=== PATIENT | female | born 1955 | race Caucasian/White ===

== ENCOUNTER 2018-08-27 07:36 | Emergency (ER) | payer MEDICAID ==
--- NOTE | 2018-08-27 07:54 | EDPHY ---
H & P Time Seen by Provider: 08/27/18 07:53 HPI/ROS: Chief complaint. Flu symptoms HPI. 63-year-old male presents emergency department with fever and congestion and achiness that began last night. He is here by EMS. No chest discomfort or shortness of breath cough. Cough is occasionally productive whitish sputum. Patient is at longterm and there is lots of coughing and sick people. He received a hepatitis a vaccine yesterday. ROS 10 systems were reviewed and negative with the exception of the elements mentioned in the history of present illness Past Medical/Surgical History: Transgender Social History: Single, daily smoker, no alcohol Smoking Status: Current every day smoker Physical Exam: General Appearance: Alert well-developed male mild distress vital signs stable Eyes: Pupils equal and round no pallor or injection. ENT, mucous membranes are moist. Pharynx without injection Respiratory: No retractions. Mild inspiratory expiratory rhonchi Cardiovascular: Regular rate and rhythm. Gastrointestinal: Abdomen is soft and nontender, no masses, bowel sounds normal. Neurological: Awake and alert, sensory and motor exams grossly normal. Skin: Warm and dry, no rashes. Musculoskeletal: Neck is supple nontender. Extremities symmetrical, full range of motion. Psychiatric: Patient is oriented X 3, there is no agitation. Constitutional: Initial Vital Signs Temperature (C) 37.0 C 08/27/18 07:39 Heart Rate 77 08/27/18 07:39 Respiratory Rate 16 08/27/18 07:39 Blood Pressure 112/66 08/27/18 07:39 O2 Sat (%) 93 08/27/18 07:39 O2 Delivery Mode Room Air Allergies/Adverse Reactions: aspirin Allergy (Verified 08/27/18 07:41) ibuprofen Allergy (Verified 08/27/18 07:41) naproxen [From Naprosyn] Allergy (Verified 08/27/18 07:41) Home Medications: Medication Instructions Recorded Bactrim DS 02/15/18 Estradiol 02/15/18 Progesterone 02/15/18 Albuterol Hfa Anes Only [Proair 2 puffs IH QID PRN #1 mdi 08/27/18 Hfa Icu (*)] Azithromycin [Zithromax] 250 mg PO DAILY #6 tab 08/27/18 predniSONE 40 mg PO DAILY #8 tablet 08/27/18 Medical Decision Making - Diagnostics Imaging Results: Imaging Impressions Chest X-Ray 08/27/18 08:08 Impression: Airways disease. No pneumonia. Chest x-ray interpreted by me shows COPD without evidence of pneumonia Procedures: DuoNeb updraft; IV normal saline ED Course/Re-evaluation: Re-evaluation 10:10 a.m.. Patient is stable. He and I discussed imaging and lab results. We discussed treatment plan including criteria for return importance of follow-up and further evaluation. He expresses understanding and agreement Differential Diagnosis: This appears to be COPD exacerbation. I considered pneumonia and influenza as causes - Data Points Laboratory Results: Laboratory Results 08/27/18 07:30 08/27/18 07:30 08/27/18 08/27/18 08/27/18 08:09 07:30 07:30 WBC 8.99 10^3/uL 10^3/uL (3.80-9.50) RBC 4.59 10^6/uL 10^6/uL (4.18-5.33) Hgb 14.4 g/dL g/dL (12.6-16.3) Hct 41.1 % % (38.0-47.0) MCV 89.5 fL fL (81.5-99.8) MCH 31.4 pg pg (27.9-34.1) MCHC 35.0 g/dL g/dL (32.4-36.7) RDW 13.8 % % (11.5-15.2) Plt Count 114 10^3/uL L 10^3/uL (150-400) MPV 11.1 fL fL (8.7-11.7) Neut % (Auto) 83.0 % H % (39.3-74.2) Lymph % (Auto) 9.7 % L % (15.0-45.0) Hand % (Auto) 6.8 % % (4.5-13.0) Eos % (Auto) 0.1 % L % (0.6-7.6) Baso % (Auto) 0.1 % L % (0.3-1.7) Nucleat RBC Rel Count 0.0 % % (0.0-0.2) Absolute Neuts (auto) 7.46 10^3/uL H 10^3/uL (1.70-6.50) Absolute Lymphs (auto) 0.87 10^3/uL L 10^3/uL (1.00-3.00) Absolute Monos (auto) 0.61 10^3/uL 10^3/uL (0.30-0.80) Absolute Eos (auto) 0.01 10^3/uL L 10^3/uL (0.03-0.40) Absolute Basos (auto) 0.01 10^3/uL L 10^3/uL (0.02-0.10) Absolute Nucleated RBC 0.00 10^3/uL 10^3/uL (0-0.01) Immature Gran % 0.3 % % (0.0-1.1) Immature Gran # 0.03 10^3/uL 10^3/uL (0.00-0.10) Sodium 131 mEq/L L mEq/L (135-145) Potassium 3.8 mEq/L mEq/L (3.5-5.2) Chloride 101 mEq/L mEq/L (97-110) Carbon Dioxide 22 mEq/l mEq/l (22-31) Anion Gap 8 mEq/L mEq/L (6-14) BUN 11 mg/dL mg/dL (7-23) Creatinine 0.7 mg/dL mg/dL (0.6-1.0) Estimated GFR > 60 Glucose 109 mg/dL H mg/dL (70-100) Calcium 8.9 mg/dL mg/dL (8.5-10.4) Nasal Influenza A PCR NEGATIVE FOR FLU A (NEGATIVE) Nasal Influenza B PCR NEGATIVE FOR FLU B (NEGATIVE) RSV (PCR) NEGATIVE FOR RSV (NEGATIVE) Medications Given: Discontinued Medications Acetaminophen (Tylenol) 1,000 mg PO EDNOW ONE Stop: 08/27/18 08:09 Last Admin: 08/27/18 08:40 Dose: 1,000 mg Albuterol/Ipratropium (Duoneb) 3 ml IH EDNOW ONE Stop: 08/27/18 08:09 Last Admin: 08/27/18 08:40 Dose: 3 ml Departure - Departure Disposition: Home, Routine, Self-Care Clinical Impression: COPD exacerbation Condition: Good Instructions: COPD (Chronic Obstructive Pulmonary Disease) (ED) Additional Instructions: Drink plenty of fluids and stay hydrated. Zithromax as antibiotic. Inhaler using 2 puffs every 4 hr as needed for breathing and cough Prednisone for the next 4 days. Return for worsening symptoms Recheck in 2 days if not improved Referrals: Patient,NotPresent [Unknown] - As per Instructions [facility] [Outside] - 2-3 days, if not improved Prescriptions: Albuterol Hfa Anes Only [Proair Hfa Icu (*)] 2 puffs IH QID PRN #1 mdi PRN Reason: Short Of Breath/Dyspnea Azithromycin [Zithromax] 250 mg PO DAILY #6 tab predniSONE 40 mg PO DAILY #8 tablet
[2018-08-27] MEDS ORDERED: ACETAMINOPHEN 500 MG TAB PO ONE (08:08)
[2018-08-27] MEDS ORDERED: IPRATROPIUM/ALBUTEROL 3 ML DEYVIAL IH ONE (08:08)
[2018-08-27 08:29] LABS: PLATELET COUNT 114 10^3/uL (150-400)
[2018-08-27 10:30] VITALS: BP 101/78
== END 2018-08-27 10:50 | disposition home or self-care (01) ==
LOC: EDUNIT# → EEVIPCON 07:36
DX: J44.1 Chronic obstructive pulmonary disease with (acute) exacerbation (principal)